=== PATIENT | female | born 1990 | race African-American/Black ===

== ENCOUNTER → 2023-02-11 12:58 | Outpatient (BNVA) | payer OTHER, SELFPAY | PROVIDERS: PCP Internal Medicine; Visit Provider Physician Assistant ==

== ENCOUNTER 2023-02-13 08:01 | Outpatient (AMB) | payer OTHER, SELFPAY ==
--- NOTE | 2023-02-13 08:11 | MHC.OFFVISWM ---
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 [facility] BMI 43.3 Allergies No Known Allergies Allergy (Verified 02/13/23 08:12) Medication List - Last Reconciled 02/13/23 by Reginald Mcfarland MD albuterol 90 mcg/actuation mcg inhalation fluticasone propionate 110 mcg/actuation (Flovent HFA) 1 puff inhalation Q12H multivitamin 1 tab PO DAILY HPI TV [facility]ERSITY SPECIALIST SWL BMI 43.3 HPI Details Start time: 8.05am, End time: 8.52am ?I spent 42 minutes speaking with the patient on the phone plus an additional 5 minutes reviewing and updating records for a total of 47 minutes HPI Comments History of Present Illness Details Previous weight loss efforts: Phentermine Wakes up: 6am, Sleeps:10pm Breakfast: 7.30am (croissant with egg and cheese, or boiled egg with avocado) Lunch: 12pm (chicken, pizza, soup) Dinner: 7.30pm (chicken with vegetables Snacks: 11am (pear or bagel), 1.30pm (brownie), 4pm Fruit), 9pm (crackers and peaches) Exercise: none Fluids: Coffee: 3/week 1/day (sugar), tea: none, juice: 3/wk, soda: none, ETOH: none PFSH Medical History (Updated 02/13/23 @ 08:18 by Reginald Mcfarland MD) Anxiety Depression Asthma Morbid obesity Surgical History (Updated 02/13/23 @ 07:44 by Geetha Enriquez CMA) Hx of breast reduction, elective Family History (Updated 02/13/23 @ 07:44 by Geetha Enriquez CMA) Mother Breast CA Paternal Aunt Breast CA Social History (Updated 02/13/23 @ 07:45 by Geetha Enriquez CMA) Household Members: Children Alcohol intake: current Alcohol intake frequency: holidays/special occasions only Patient Tobacco Use Status: Never used Tobacco service: No Current occupational status: employed 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 Plan for lap sleeve gastrectomy. If diaphragmatic or ventral hernias are present at time of surgery, these will be repaired laparoscopically as well. Risks and complications were discussed in detail including possible conversion to an open procedure, anastomotic leak, bleeding requiring transfusion, small bowel obstruction, , DVT and pulmonary embolism, cardiac, or pulmonary complications, as associate professor of sociology complications such as anastomotic ulcer, insufficient weight loss and vitamin deficiencies. I emphasized the importance of close follow-up, adherence to instructions and good communication. 2. Nutritional counseling. Start with 2 Isopure INFUSION protein (buy at [employer], [employer], [employer], [employer]) shakes (HALF scoop EACH in 8oz low fat unsweetened almond milk each) at 7am-9am and 10am-12pm, 2 protein bars (Zone Perfect protein bars, buy at [employer], ?[employer], [employer], or [employer]) at 1pm-3pm and 4pm-6pm, dinner at 7pm (8 forks of protein and 8 forks of salad/vegetables). So you do 2 protein shakes, 2 protein bars and one meal per day. Meal to include lean meat (beef, fish, pork, turkey, chicken), or cymro yogurt, or egg whites, or beans with a salad with olive oil and fruits (berries, pears, apples, kiwi). Avoid salt, breads, potatoes, rice, pasta, desserts. 3. Each shake would be drunk slowly, like coffee in a period of 2 hours. 4. Cut each bar in 4 pieces and eat each piece in 30min ?to make each bar last 2 hours. 5. I emphasized the importance of measuring accurately the food portion and measure it when serving the food in plate 6. The meal portions include 8 full-size forks of meat and 8 full-size forks of salad. You always eat the meat portion but you can replace up to 4 forks for salad/vegetables with rice, potatoes or pasta, or a fruit ?if you like. The less you do it the better weight loss will be. 7. One full-size fork is what it can be scooped on the fork without falling aside and not what can be bit with the fork. Use regular forks like those you find in a typical restaurant. 8.? Please send me weight measurements as soon as possible and then once a week. Always include your diet and exercise plan. 9. Start treadmill with an incline of 2.0 and speed of 3.0. Increase incline by 1 every 3 min to a max incline of 8.0, stay 3min at 8.0 and then return to 2.0 and repeat same steps until calorie goal is met. Goal is to burn 2000 calories per week on exercise, which means either 300 calories daily, or 400 calories 5 days per week, or 500 calories 4 days per week, or 650 calories 3 days per week. 10. The best choice would be to purchase a stationary bike, elliptical or treadmill at home that can track calories. Let me know if you do so I can give you an exercise plan. 11.?It is important of avoiding and for at least 18 months postoperatively and has been discussed at the infosession. 12. Goal is to lose at least 1.5-2lbs per week 13. Goal to lose 10% of your weight before surgery, which is about 21lbs. Ultimate weight goal: 193lbs before surgery 14. Please follow the diet plan exactly without any change. If you don't like something about the plan or you feel hungry you need to communicate with me so I can help you revise the plan. You should not change the plan yourself. Orders: Orders Hemoglobin A1c Today E66.01 - Morbid (severe) obesity due to excess calories, J45.909 - Unspecified asthma, uncomplicated Complete Blood Count Auto Diff Today E66.01 - Morbid (severe) obesity due to excess calories, J45.909 - Unspecified asthma, uncomplicated Lipid Panel Today E66.01 - Morbid (severe) obesity due to excess calories, J45.909 - Unspecified asthma, uncomplicated Zinc Today E66.01 - Morbid (severe) obesity due to excess calories, J45.909 - Unspecified asthma, uncomplicated C Reactive Protein Today E66.01 - Morbid (severe) obesity due to excess calories, J45.909 - Unspecified asthma, uncomplicated Vitamin A Today E66.01 - Morbid (severe) obesity due to excess calories, J45.909 - Unspecified asthma, uncomplicated Vitamin D 25-OH Total Today E66.01 - Morbid (severe) obesity due to excess calories, J45.909 - Unspecified asthma, uncomplicated US abdomen comp w elastography Today E66.01 - Morbid (severe) obesity due to excess calories, J45.909 - Unspecified asthma, uncomplicated XR chest 2V Today E66.01 - Morbid (severe) obesity due to excess calories, J45.909 - Unspecified asthma, uncomplicated ECG 12 lead EKG Today E66.01 - Morbid (severe) obesity due to excess calories, J45.909 - Unspecified asthma, uncomplicated FL upper GI w air Today E66.01 - Morbid (severe) obesity due to excess calories, J45.909 - Unspecified asthma, uncomplicated Insulin Today E66.01 - Morbid (severe) obesity due to excess calories, J45.909 - Unspecified asthma, uncomplicated H Pylori Breath Test Today E66.01 - Morbid (severe) obesity due to excess calories, J45.909 - Unspecified asthma, uncomplicated IRON PROFILE Today E66.01 - Morbid (severe) obesity due to excess calories, J45.909 - Unspecified asthma, uncomplicated Comprehensive Met. Panel Today E66.01 - Morbid (severe) obesity due to excess calories, J45.909 - Unspecified asthma, uncomplicated Vitamin B12 and Folate Today E66.01 - Morbid (severe) obesity due to excess calories, J45.909 - Unspecified asthma, uncomplicated Vitamin B1 Today E66.01 - Morbid (severe) obesity due to excess calories, J45.909 - Unspecified asthma, uncomplicated TSH reflex Free T4 Today E66.01 - Morbid (severe) obesity due to excess calories, J45.909 - Unspecified asthma, uncomplicated Ferritin Today E66.01 - Morbid (severe) obesity due to excess calories, J45.909 - Unspecified asthma, uncomplicated Referrals Behavioral Health Referral E66.01 - Morbid (severe) obesity due to excess calories, J45.909 - Unspecified asthma, uncomplicated Nutrition/Dietitian Referral E66.01 - Morbid (severe) obesity due to excess calories, J45.909 - Unspecified asthma, uncomplicated Telehealth Telehealth Location of provider rendering services: practice address Location of patient: address on file Patient Identification confirmed using: Name, : Yes Telehealth method: voice only Patient verbally consented to treatment: Yes Patient verbally consented to billing insurance company: Yes Patient informed of any privacy concerns related to visit: Yes Minutes spent on Phone/Video with Pt.: 47 Coding Level of Care Code Tele New Pt Level 4 (09443) Diagnoses Morbid obesity E66.01 Time Spent (min) 47
[2023-02-13 08:26] VITALS: BMI 43.2
== END 2023-02-13 08:53 | disposition home or self-care (01) ==
LOC: HO.HBS 08:01
PROVIDERS: PCP Internal Medicine; Visit Provider Surgery
DX: E66.01 Morbid (severe) obesity due to excess calories (principal); Z68.41 Body mass index [BMI] 40.0-44.9, adult
CPT/HCPCS: 99204

== ENCOUNTER → 2023-02-13 08:01 | Outpatient (BNVA) | payer OTHER, SELFPAY | PROVIDERS: PCP Internal Medicine; Visit Provider Surgery ==

== ENCOUNTER 2023-02-23 11:28 | Outpatient (REF) | payer OTHER, SELFPAY ==
[2023-02-23 11:49] LABS: MANUAL DIFF FLAG NO
--- NOTE | 2023-02-23 12:01 | ECG_ITS ---
Test Reason : e66.01 Blood Pressure : / mmHG Vent. Rate : 052 BPM Atrial Rate : 052 BPM P-R Int : 150 ms QRS Dur : 082 ms QT Int : 410 ms P-R-T Axes : 069 075 044 degrees QTc Int : 381 ms Sinus bradycardia with sinus arrhythmia Otherwise normal ECG No previous ECGs available Referred By: Reginald Mcfarland Electronically Signed By:GONZALES TAYLOR MD
[2023-02-23 12:13] LABS: Basophils Percent Auto 0.4 % (0-2); Eosinophils Absolute Auto 0.1 X10*3/uL (0.0-0.4); Eosinophils Percent Auto 1.4 % (0-4); Hematocrit 43.8 % (37.0-47.0); Hemoglobin 14.4 g/dl (12.0-16.0); Imm Gran Abs Auto 0.01 X10*3/uL (0.00-0.03); Imm Gran Pct Auto 0.2 % (0.0-0.4); Lymphocytes Absolute Auto 2.8 X10*3/uL (1.2-4.9); Lymphocytes Percent Auto 49.8 % (20-40); Mean Corpuscular HGB Conc 32.9 g/dl (31.0-35.0); Mean Corpuscular Hemoglobin 29.6 pg (27.0-33.0); Mean Corpuscular Volume 89.9 fL (80.0-98.0); Mean Platelet Volume 10.8 fL (9.4-12.3); Monocytes Absolute Auto 0.4 X10*3/uL (0.1-1.2); Monocytes Percent Auto 6.3 % (2-11); Neutrophils Absolute Auto 2.4 x10*3/uL (2.0-8.3); Neutrophils Percent Auto 41.9 % (45-73); Platelet Count 261 X10*3/uL (160-400); Red Blood Count 4.87 X10*6/uL (4.20-5.50); Red Cell Distribution Width 11.9 % (11.0-16.0); White Blood Count 5.6 X10*3/uL (4.8-10.8)
[2023-02-23 12:24] LABS: Estimated Average Glucose 97 mg/dL
[2023-02-23 12:50] LABS: Alanine Aminotransferase 12 U/L (0-31); Albumin Level 4.2 g/dL (3.5-5.0); Alkaline Phosphatase 75 U/L (39-117); Anion Gap 11 (12-20); Aspartate Amino Transferase 17 U/L (5-31); Bilirubin Total 0.6 mg/dL (0.0-1.0); Blood Urea Nitrogen 9 mg/dL (9-16); C Reactive Protein 1.21 mg/dL (< or = 0.50); Calcium 9.4 mg/dL (8.4-10.2); Carbon Dioxide 26 mmol/L (22-29); Chloride 105 mmol/L (96-108); Cholesterol 167 mg/dL (<200); Estimated Glomerular Filt Rate > 60; Glucose Random 81 mg/dL (60-115); HDL Cholesterol 36 mg/dL (>40); Iron 75 mcg/dL (30-160); LDL Cholesterol Calculated 119 mg/dL (<100); Percent Iron Saturation 24 % (15-50); Sodium 138 mmol/L (135-145); Total Iron Binding Capacity 308 mcg/dL (228-428); Total Protein 8.4 g/dL (6.5-8.0); Triglycerides 61 mg/dL (<150); Unsaturated Iron Binding 233 ug/dL
[2023-02-23 13:07] LABS: Ferritin 45 ng/mL (10-122); Insulin 12 uU/mL (2-29); TSH reflex Free T4 1.24 uIU/mL (0.32-4.0); Vitamin D 25-OH Total 22.8 ng/mL (>30)
[2023-02-23 13:13] LABS: Folate 10.9 ng/mL (> or = 4.0); Vitamin B12 1009 pg/mL (200-900)
[2023-02-25 13:48] LABS: Zinc 69 mcg/dL (60-130)
[2023-02-27 03:53] LABS: Vitamin A 35 mcg/dL (38-98)
[2023-03-01 04:53] LABS: Vitamin B1 6 nmol/L (8-30)
== END 2023-02-23 11:29 | disposition home or self-care (01) ==
LOC: HO.LAB 11:28
PROVIDERS: PCP Internal Medicine; Visit Provider Surgery
DX: E66.01 Morbid (severe) obesity due to excess calories (principal); J45.909 Unspecified asthma, uncomplicated
CPT/HCPCS: 36415; 71046; 80053; 80061; 82306; 82607; 82728; 82746; 83036; 83525; 83540; 84425; 84443; 84590; 84630; 85025; 86140; 93005

== ENCOUNTER → 2023-02-23 12:01 | Outpatient (BNV) | payer OTHER, SELFPAY | PROVIDERS: PCP Internal Medicine; Visit Provider Internal Medicine Cardiovascular Disease | DX: I49.9 Cardiac arrhythmia, unspecified (principal) | CPT/HCPCS: 93010 ==

== ENCOUNTER 2023-03-04 09:46 | Outpatient (AMB) | payer OTHER, SELFPAY ==
--- NOTE | 2023-03-04 12:02 | A.OFFVIS_ITS ---
Intake VS Expanded 03/04/23 12:03 Height 4 ft 11 in Weight 208 lb 6 oz BMI 42.1 Body Fat % 54 Body Fat Mass 112.6 Fat Free Mass 95.9 Visceral Fat Rating 23 Body Water % 31.6 Body Water Mass 65.9 Basal Metabolic Rate/Score 1,309 Intake Visit Reasons: TV Follow Up SWL - 1ST Allergies No Known Allergies Allergy (Verified 02/13/23 08:12) HPI TV Follow Up SWL - 1ST HPI Details Start time: 11.50am, End time: 12.10pm ?I spent 15 minutes speaking with the patient on the phone plus an additional 5 minutes reviewing and updating records for a total of 20 minutes HPI Comments History of Present Illness Details Overall weight loss: 5.6lbs, or 2.61% TBWL Was away for a family the entire last week PFSH Medical History (Updated 03/04/23 @ 11:51 by Reginald Mcfarland MD) Anxiety Depression Asthma Morbid obesity Surgical History (Updated 02/13/23 @ 07:44 by Geetha Enriquez CMA) Hx of breast reduction, elective Family History (Updated 02/13/23 @ 07:44 by Geetha Enriquez CMA) Mother Breast CA Paternal Aunt Breast CA Social History (Updated 02/13/23 @ 07:45 by Geetha Enriquez CMA) Household Members: Children Alcohol intake: current Alcohol intake frequency: holidays/special occasions only Patient Tobacco Use Status: Never used Tobacco service: No Current occupational status: employed 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 Nutritional counseling. Start with 2 Isopure INFUSION protein shakes (HALF scoop EACH in 8oz water) at 7am-9am and 10am-12pm, 2 protein bars ([employer] Perfect protein bars, buy at [employer], ?[employer], [employer], or [employer]) at 1pm-3pm and 4pm-6pm, dinner at 7pm (8 forks of protein and 8 forks of salad/vegetables). So you do 2 protein shakes, 2 protein bars and one meal per day. 2.? Please send me weight measurements tomorrow and then weekly on 3. Start treadmill with an incline of 2.0 and speed of 3.0. Increase incline by 1 every 3 min to a max incline of 8.0, stay 3min at 8.0 and then return to 2.0 and repeat same steps until calorie goal is met. Goal is to burn 2000 calories per week on exercise, which means either 300 calories daily, or 400 calories 5 days per week, or 500 calories 4 days per week, or 650 calories 3 days per week. Medications: New thiamine HCl (vitamin B1) 100 mg PO DAILY 90 tabs 0RF E51.9 - Thiamine deficiency, unspecified Telehealth Telehealth Location of provider rendering services: practice address Location of patient: address on file Patient Identification confirmed using: Name, : Yes Telehealth method: voice only Patient verbally consented to treatment: Yes Patient verbally consented to billing insurance company: Yes Patient informed of any privacy concerns related to visit: Yes Minutes spent on Phone/Video with Pt.: 20 Coding Level of Care Code Tele Est Pt Level 3 (13195) Diagnoses Morbid obesity E66.01 Time Spent (min) 20
[2023-03-04 12:03] VITALS: BMI 42.1
== END 2023-03-04 12:11 | disposition home or self-care (01) ==
LOC: HO.HBS 09:46
PROVIDERS: PCP Internal Medicine; Visit Provider Surgery
DX: E66.01 Morbid (severe) obesity due to excess calories (principal); Z68.43 Body mass index [BMI] 50.0-59.9, adult
CPT/HCPCS: 99213

== ENCOUNTER → 2023-03-04 09:46 | Outpatient (BNVA) | payer OTHER, SELFPAY | PROVIDERS: PCP Internal Medicine; Visit Provider Surgery ==

== ENCOUNTER 2023-03-13 15:08 | Outpatient (REF) | payer OTHER, SELFPAY ==
[2023-03-20 09:55] LABS: H Pylori Breath Test Positive (Negative)
== END 2023-03-13 15:09 | disposition home or self-care (01) ==
LOC: HO.LNP 15:08
PROVIDERS: Visit Provider Surgery
DX: E66.01 Morbid (severe) obesity due to excess calories (principal); J45.909 Unspecified asthma, uncomplicated
CPT/HCPCS: 83013

== ENCOUNTER → 2023-03-13 15:08 | Outpatient (BNVA) | payer OTHER, SELFPAY | PROVIDERS: PCP Internal Medicine; Visit Provider Physician Assistant Surgical | DX: Z11.0 Encounter for screening for intestinal infectious diseases (principal) | CPT/HCPCS: 99211 ==

== ENCOUNTER 2023-03-17 15:07 | Outpatient (AMB) | payer SELFPAY ==
--- NOTE | 2023-03-17 14:03 | A.OFFWM_ITS ---
Intake Intake Visit Reasons: VIDEO BH Intake Allergies No Known Allergies Allergy (Verified 02/13/23 08:12) [facility] Medical History (Updated 03/28/23 @ 14:10 by Reginald Mcfarland MD) Anxiety Depression Asthma Morbid obesity Surgical History (Updated 02/13/23 @ 07:44 by Geetha Enriquez CMA) Hx of breast reduction, elective Family History (Updated 02/13/23 @ 07:44 by Geetha Enriquez CMA) Mother Breast CA Paternal Aunt Breast CA Social History (Updated 02/13/23 @ 07:45 by Geetha Enriquez CMA) Household Members: Children Alcohol intake: current Alcohol intake frequency: holidays/special occasions only Patient Tobacco Use Status: Never used Tobacco service: No Current occupational status: employed 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 Pt stated that she has been in therapy for 15 years now and is seeing Starr Isabel who is in private practice. She reported that she was diagnosed with anxiety and depression. Pt reported that she relocated here from [place] as a single mother who was homeless. She now works two jobs and attends school. She has no history of drug or alcohol problems. She reported one previous inpatient admission when she was 15 years old. Also recently lost her grandmother. Presenting Concerns Referral Source provider Reason for referral weight loss surgery evaluation Precipitating Event obesity Living Situation Current Living Situation Rent At risk of losing current housing? No Satisfied with current living situation? Yes Comments Pt lives with her two children ages 9, and 4 years old. Food/Weight/Diet Expectations of change weight loss and maintenance History/Relationship with food Pt stated that food was often a source of comfort, she would have pizza, cereal, fruit cups, soups, pasta, she denied excessive or binge eating, Some reports today did not coincide with questionnaires initially filled out. History/Relationship with weight Pt stated that she started to gain weight after she had her son and struggled to loose weight. History/Relationship with dieting Phentermine recently at another program however had to stop due to that program not taking her insurance, 230-170lbs, gained some of the weight back. Binge Eating Do you frequently eat large amounts of food in short periods of time, not feeling physically hungry? No Do you feel out of control when you eat a large amount of food in a short period of time? No Do you eat large amounts of food rapidly and typically alone? Yes Night Eating Do you wake up at least once during the night to eat? No If you wake up in the night, do you find that it is necessary to eat something in order to fall back asleep? No Do you have little or no appetite in the morning and feel very hungry in the evening, often overeating between dinner and when you go to bed? Yes Social History Family history and relationship Pt stated that her family lives in [place]. She lives here with her two children and their father co parents with her. She reported toxic family relationships was one of the reasons she left [place]. Parental/Familial ticket writer obligations children Developmental history and status none known Social support some family support, ex , co workers Legal Involvement and History Current or historical involvement with the legal system? none Education Highest grade completed currently attending online college classes Preferred learning style Auditory, Verbal, Written, Learn by doing and Visual Currently enrolled in educational program? Yes Interested in further educational program? Yes Educational Interests/Skills Pt works two jobs and is going to school while raising her children. 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 No Meaningful activities gym, [employer], [employer] Financial Situation Describe current financial situation Occasional struggle Financial assistance? None Service Service? No Mental Health and Addiction Treatment Current/Past substance abuse? No Current/Past addictive behavior concerns? No Medical and Physical Health Summary Physical exam in the last year? Yes Pain Screening Current pain? No Pain in the last few months? No Medications Is the patient compliant with medications? Yes Does the patient have Chang Guardian in place? Not applicable Does the patient use complimentary health approaches? No Trauma/Abuse History History of trauma? Yes Questionnaires PHQ-9 Over the last 2 weeks, how often have you been bothered by any of the following problems? 1. Little interest or pleasure in doing things: several days 2. Feeling down, depressed, or hopeless: more than half the days 3. Trouble falling or staying asleep, or sleeping too much: not at all 4. Feeling tired or having little energy: nearly every day 5. Poor appetite or overeating: nearly every day 6. Feeling bad about yourself - or that you are a failure or have let yourself or your family down: not at all 7. Trouble concentrating on things, such as reading the newspaper or watching television: more than half the days 8. Moving or speaking so slowly that other people could have noticed. Or the opposite - being so fidgety or restless that you have been moving around a lot more than usual: not at all 9. Thoughts that you would be better off or of hurting yourself in some way: not at all Total score: 11 Source: Developed by Drs. Jigar Lechuga, Juanita Enrique, Ad Herrera and colleagues, with an educational oscar from [employer]. Binge Eating Scale Group 1 A. I don't feel self-conscious about my wt. or body size when I'm with others. B. I feel concerned about how I look to others, but it normally does not make me fell disappointed with myself C. I do get self-conscious about my appearance and wt. which makes me feel disappointed in myself. D. I feel very self-conscious about my wt. and frequently I feel intense shame and disgust for myself. I try to avoid social contacts because of my self- consciousness. Response Group 1: C Group 2 A. I don't have any difficulty eating slowly in the proper manner. B. Although I seem to gobble down foods, I don't end up feeling stuffed because of eating to much. C. At times, I tend to eat quickly and then, I feel uncomfortably full afterwards. D. I have the habit of bolting down my food, without really chewing it. When this happens I usually feel uncomfortably stuffed because I've eaten to much. Response Group 2: C Group 3 A. I feel capable to control my eating urges when I want to. B. I feel like I have failed to control my eating more than the average person. C. I feel utterly helpless when it comes to feeling in control of my eating urges. D. Because I feel so helpless about controlling my eating I have become very desperate about trying to get control. Response Group 3: B Group 4 A. I don't have the habit of eating when I'm bored. B. I sometimes eat when I'm bored, but often I'm able to get busy and get my mind off food. C. I have a regular habit of eating when I'm bored, but occasionally, I can use some other activity to get my mind off eating. D. I have a strong habit of eating when I'm bored. Nothing seems to help me breath the habit. Response Group 4: D Group 5 A. I'm usually physically hungry when I eat something. B. Occasionally, I eat something on impulse even though I really am not hungry. C. I have the regular habit of eating foods, that I might not really enjoy, to satisfy a hungry feeling even though physically, I don't need the food. D. Although I'm not physically hungry, I get a hungry feeling in my mouth that only seems to be satisfied when I eat a food, like sandwich, that fills my mouth. Sometimes, when I eat the food to satisfy my mouth hunger, I then spit the food out so I won't gain weight. Response Group 5: B Group 6 A. I don't feel any guilt or self-hate after I overeat. B. After I overeat, occasionally I feel guilt or self-hate. C. Almost all the time I experience strong guilt or self-hate after I overeat. Response Group 6: B Group 7 A. I don't lose total control of my eating when dieting even after periods when I overeat. B. Sometimes when I eat a forbidden food on a diet, I feel like I blew it and eat even more. C. Frequently, I have the habit of saying to myself, I've blown it now, why not go all the way, when I overeat on a diet. When that happens I eat more. D. I have a regular habit of starting a strict diets for myself but I break the diets by going on an eating binge. My life seems to be either a feast or famine. Response Group 7: B Group 8 A. I rarely eat so much food that I feel uncomfortably stuffed afterwards. B. Usually about once a month, I each such a quantity of food, I end up feeling very stuffed. C. I have regular periods during the month when I eat large amounts of food, either at mealtime or at snacks. D. I eat so much food that I regularly feel quite uncomfortable after eating and sometimes a bit nauseous. Response Group 8: B Group 9 A. My level of calorie intake does not go up very high or go down very low on a regular basis. B. Sometimes after I overeat, I will try to reduce my caloric intake to almost nothing to compensate for the excess calories I've eaten. C. I have a regular habit of overeating during the night. It seems that my routine is not to be hungry in the morning but overeat in the evening. D. In my adult years, I have had week-long periods where I practically starve my self. This follows periods when I overeat. It seems I live a life of either feast or famine. Response Group 9: C Group 10 A. I usually am able to stop eating when I want to. I know when enough is enough. B. Every so often, I experience a compulsion to eat which I can't seem to control. C. Frequently, I experience strong urges to eat which I seem unable to control, but at other times I can control my eating urges. D. I feel incapable of controlling urges to eat. I have a fear of not being able to stop eating voluntarily. Response Group 10: B Group 11 A. I don't have any problem stopping eating when I feel full. B. I usually can stop eating when I feel full but occasionally overeat leaving me feeling uncomfortably stuffed. C. I have a problem stopping eating once I start and usually I feel uncomfortably stuffed after I eat a meal. D. Because I have a problem not being able to stop eating when I want, I sometimes have to induce vomiting to relieve my stuffed feeling. Response Group 11: B Group 12 A. I seem to eat just as much when I'm with others, Family social gatherings as when I'm by myself. B. Sometimes, when I'm with other persons, I don't eat as much as I want to eat because I'm self-conscious about my eating. C. Frequently, I eat only a small amount of food when others are present, because I'm very embarrassed about my eating. D. I feel so ashamed about overeating that I pick times to overeat when I know no one will see me. I feel like a closet eater. Response Group 12: A Group 13 A. I eat three meals a day with only an occasional between meal snack. B. I eat 3 meals a day, but I also normally snack between meals. C. When I am snacking heavily, I get in the habit of skipping regular meals. D. There are regular periods when I seem to be continually eating, with no planned meals. Response Group 13: D Group 14 A. I don't think much about trying to control unwanted eating urges. B. At least some of the time, I feel my thoughts are pre-occupied with trying to control my eating urges. C. I feel that frequently I spend much time thinking about how much I ate or about trying not to eat anymore. D. It seems to me that most of my waking hours are pre-occupied by thoughts about eating or not eating. I feel like I'm constantly struggling not to eat. Response Group 14: A Group 15 A. I don't think about food a great deal. B. I have strong craving for food but they last only for brief periods of time. C. I have days when I can't seem to think about anything else but food. D. Most of my days seem to be pre-occupied with thoughts about food. I feel like I live to eat. Response Group 15: B Group 16 A. I usually know whether or not I'm physically hungry. I take the right portion of food to satisfy me. B. Occasionally, I feel uncertain about knowing whether or not I'm physically hungry. A these times it's hard to know how much food I should take to satisfy me. C. Even though I might know how many calories I should eat, I don't have any idea what is a normal amount of food for me. Response Group 16: B Binge Eating Score: 21 Score less than 17 Minimal Risk Score between 18-26 Moderate Risk Score between 27-46 High Risk Assessment & Plan Assessment & Plan (1) Depression: Code(s): F32.A - Depression, unspecified Plan Patient is in therapy, reports no serious issues at this time. She is cleared for surgery when ready and follow up as needed. Telehealth Telehealth Location of provider rendering services: other Location of patient: other Patient Identification confirmed using: Name, : Yes Telehealth method: voice only Patient verbally consented to treatment: Yes Patient verbally consented to billing insurance company: Yes Patient informed of any privacy concerns related to visit: Yes Minutes spent on Phone/Video with Pt.: 45 Coding Level of Care Code Tele Psy Diag Bhavanial (77836) Diagnoses Depression F32.A Time Spent (min) 45
== END 2023-03-17 15:15 ==
LOC: HO.HBST 15:07
PROVIDERS: PCP Internal Medicine; Visit Provider Counselor Mental Health
DX: F32.A Depression, unspecified (principal)
CPT/HCPCS: 90791

== ENCOUNTER → 2023-03-17 15:07 | Outpatient (BNVA) | payer OTHER, SELFPAY | PROVIDERS: PCP Internal Medicine; Visit Provider Counselor Mental Health ==

== ENCOUNTER 2023-03-18 14:36 | Outpatient (AMB) | payer OTHER, SELFPAY ==
--- NOTE | 2023-03-18 14:20 | A.OFFVIS_ITS ---
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 she has used this approach in the past and it did not work for her. she has told this to Dr. Mcfarland. I encouraged she discuss this again She is grieving the loss of a very close loved one. she has a therapist and saw arabella yesterday. she is experiencing a lot of emotional eating. This iis a very difficult time to change her eating habits but she is still working on it after her second child, she started craving more carbs . she completed online classes and these were reviewed today Previous weight loss methods attempted Phentermine for 2.5 years Dietary counseling reduction Diagnosis Nutrition problem #1 overweight/obesity As related to (etiology) #1 excess energy intake and physical inactivity As evidenced by (sign/symptom) #1 high BMI Monitoring/Goals Nutrition problem monitoring total energy intake, level of knowledge/skill, total PRO intake, total CHO intake and weight Learning/Education Readiness to learn excellent Stages of change action Most Recent Diabetes Results: Cholesterol 167 mg/dL (<200) 02/23/23 HDL Cholesterol 36 mg/dL (>40) L 02/23/23 Triglycerides 61 mg/dL (<150) 02/23/23 Creatinine 0.83 mg/dL (0.5-1.4) 02/23/23 Blood Urea Nitrogen 9 mg/dL (9-16) 02/23/23 Sodium 138 mmol/L (135-145) 02/23/23 Potassium 4.0 mmol/L (3.3-5.1) 02/23/23 Chloride 105 mmol/L (96-108) 02/23/23 Carbon Dioxide 26 mmol/L (22-29) 02/23/23 Calcium 9.4 mg/dL (8.4-10.2) 02/23/23 AST 17 U/L (5-31) 02/23/23 ALT 12 U/L (0-31) 02/23/23 Total Protein 8.4 g/dL (6.5-8.0) H 02/23/23 Albumin 4.2 g/dL (3.5-5.0) 02/23/23 [facility] Medical History (Updated 03/04/23 @ 11:51 by Reginald Mcfarland MD) Anxiety Depression Asthma Morbid obesity Surgical History (Updated 02/13/23 @ 07:44 by Geetha Enriquez CMA) Hx of breast reduction, elective Family History (Updated 02/13/23 @ 07:44 by Geetha Enriquez CMA) Mother Breast CA Paternal Aunt Breast CA Social History (Updated 02/13/23 @ 07:45 by Geetha Enriquez CMA) Household Members: Children Alcohol intake: current Alcohol intake frequency: holidays/special occasions only Patient Tobacco Use Status: Never used Tobacco service: No Current occupational status: employed 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 Assessment & Plan Assessment & Plan (1) Morbid obesity: Code(s): E66.01 - Morbid (severe) obesity due to excess calories Plan pt will be seen again for support Telehealth Telehealth Location of provider rendering services: practice address Location of patient: address on file Patient Identification confirmed using: Name, : Yes Telehealth method: voice only Patient verbally consented to treatment: Yes Patient verbally consented to billing insurance company: Yes Patient informed of any privacy concerns related to visit: Yes Minutes spent on Phone/Video with Pt.: 20 Coding Level of Care Code Nutr Indiv Intake (62299) Diagnoses Morbid obesity E66.01 Time Spent (min) 20
== END 2023-03-18 14:40 | disposition home or self-care (01) ==
LOC: HO.HBS 14:36
PROVIDERS: PCP Internal Medicine; Visit Provider Dietitian, Registered
DX: E66.01 Morbid (severe) obesity due to excess calories (principal)

== ENCOUNTER → 2023-03-18 14:36 | Outpatient (BNVA) | payer OTHER, SELFPAY | PROVIDERS: PCP Internal Medicine; Visit Provider Dietitian, Registered | DX: E66.01 Morbid (severe) obesity due to excess calories (principal) | CPT/HCPCS: 97802 ==

== ENCOUNTER 2023-03-20 08:31 | Outpatient (REF) | payer SELFPAY ==
--- NOTE | ~2023-03-20 | US_ITS ---
EXAMINATION: US COMPLETE ABDOMEN WITH LIVER ELASTOGRAPHY CLINICAL INFORMATION: History of morbid obesity. COMPARISON: None available. TECHNIQUE: Real-time imaging of the abdominal viscera. Noninvasive ultrasound liver fibrosis assessment is performed using Shaila ElastPQ point quantification shear wave elastography (2D-SWE) with a C5-2 MHz transducer. Multiple elastography samples are obtained. FINDINGS: PANCREAS: Normal. The visualized pancreatic head and body are normal in appearance. The remainder of the pancreas is obscured from visualization by the overlying bowel gas. ABDOMINAL AORTA: The proximal, middle, and distal aortic segments are normal in caliber, although some of the distal aorta is partially obscured by bowel gas. INFERIOR VENA CAVA: Visualized portions are normal. LIVER: Liver has normal size and contour. At visualized inspection, the parenchymal echotexture appears to be in normal range. The echogenicity of portal venous med[place] is maintained. No focal lesion or intrahepatic ductal dilatation The right lobe measures approximately 14 cm in length. The left lobe measures 7.9 cm in length. Portal flow is . Shear wave liver elastography median stiffness is 1.84 m/s (reference: normal median stiffness is 1.3 m/s or less). IQR/median stiffness to assess sampling precision is 0.10 (reference: good quality data set is IQR/median stiffness of 0.15 or less). GALLBLADDER: The gallbladder is physiologically distended without evidence of stones, sludge, wall thickening or pericholecystic fluid. There is a 0.2 cm gallbladder polyp. COMMON BILE DUCT: Normal in caliber measuring 0.5 cm in diameter. RIGHT KIDNEY: Normal. No hydronephrosis. No renal calculi or focal parenchymal lesions. The kidney measures 10.7 cm in maximum dimension. LEFT KIDNEY: Normal. No hydronephrosis. No renal calculi or focal parenchymal lesions. The kidney measures 10.7 cm in maximum dimension. SPLEEN: Normal. The spleen measures 8.5 cm in maximum dimension. FREE FLUID: None. US/US abdomen comp w elastography IMPRESSION: The liver elastography is abnormal. Shear wave liver elastography median stiffness is 1.84 m/s (reference: normal median stiffness is 1.3 m/s or less). Findings suggestive of compensated advanced chronic liver disease but need further test for confirmation. There is a small gallbladder polyp. REFERENCE: Society of Radiologists in Ultrasound Liver Stiffness Thresholds (2020): LIVER STIFFNESS THRESHOLDS: *Liver Stiffness equal or less than 1.3 m/s: High probability of being normal. *Liver Stiffness less than 1.7 m/s: In the absence of other known clinical signs, rules out compensated advanced chronic liver disease. *Liver Stiffness 1.7-2.1 m/s: Suggestive of compensated advanced chronic liver disease but need further test for confirmation. *Liver Stiffness over 2.1 m/s: Rules in compensated advanced chronic liver disease. *Liver Stiffness over 2.4 m/s: Suggestive of clinically significant portal hypertension. QUALITY OF DATA SET: *IQR/Median value equal or less than 0.15 implies a quality data set. *IQR/Median value over 0.15 implies a poor quality data set. OTHER CONSIDERATIONS: The stage of liver fibrosis may be overestimated in the setting of acute hepatitis, liver inflammation, elevated liver function tests, hepatic vascular congestion, obstructive cholestasis, non-fasting state, and infiltrative diseases such as amyloidosis and lymphoma. In some patients with NAFLD, the liver stiffness thresholds for compensated advanced chronic liver disease may be lower. In causes other than viral hepatitis and NAFLD, liver stiffness thresholds are not well established.
== END 2023-03-20 08:32 | disposition home or self-care (01) ==
LOC: HO.US 08:31
PROVIDERS: PCP Internal Medicine; Visit Provider Surgery
DX: E66.01 Morbid (severe) obesity due to excess calories (principal); J45.909 Unspecified asthma, uncomplicated
CPT/HCPCS: 76705; 76981

== ENCOUNTER 2023-03-27 08:09 | Outpatient (AMB) | payer OTHER, SELFPAY ==
[2023-03-27 12:40] VITALS: BMI 43.0
--- NOTE | 2023-03-27 12:40 | MHC.OFFVISWM ---
Intake VS Expanded 03/27/23 12:40 Height 4 ft 11 in Weight 213 lb BMI 43.0 Body Fat % 55.4 Body Fat Mass 118 Fat Free Mass 94.9 Visceral Fat Rating 24 Body Water % 30.6 Body Water Mass 65.1 Basal Metabolic Rate/Score 1,299 Intake Visit Reasons: TV Follow Up SWL Allergies No Known Allergies Allergy (Verified 02/13/23 08:12) HPI TV Follow Up SWL HPI Details Start time: 12.21pm, End time: 12.51pm ?I spent 25 minutes speaking with the patient on the phone plus an additional 5 minutes reviewing and updating records for a total of 30 minutes HPI Comments History of Present Illness Details Overall weight loss: 0.8lbs Is doing 2 Isopure protein shakes (1/2 scoop each in water), 2 Zone Perfect protein bars and one meal (8 forks of protein and 8 forks of salad or vegetables). At times at the hospital she may eat wrong food choices due to not having prepared a proper meal Exercise: walking at work [facility] Medical History (Updated 03/04/23 @ 11:51 by Reginald Mcfarland MD) Anxiety Depression Asthma Morbid obesity Surgical History (Updated 02/13/23 @ 07:44 by Geetha Enriquez CMA) Hx of breast reduction, elective Family History (Updated 02/13/23 @ 07:44 by Geetha Enriquez CMA) Mother Breast CA Paternal Aunt Breast CA Social History (Updated 02/13/23 @ 07:45 by Geetha Enriquez CMA) Household Members: Children Alcohol intake: current Alcohol intake frequency: holidays/special occasions only Patient Tobacco Use Status: Never used Tobacco service: No Current occupational status: employed 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 Continue same nutritional plan of 2 Isopure protein shakes (1/2 scoop each in water), 2 Zone Perfect protein bars and one meal (8 forks of protein and 8 forks of salad or vegetables). 2. When you have not prepared a proper meal, please replace the meal with an additional 2 Zone Perfect protein bars for a total of 4 bars those days 3. It would be best to exercise on the treadmill for 300 calories per day, daily 4. Continue to send me weight measurements weekly on Telehealth Telehealth Location of provider rendering services: practice address Location of patient: address on file Patient Identification confirmed using: Name, : Yes Telehealth method: voice only Patient verbally consented to treatment: Yes Patient verbally consented to billing insurance company: Yes Patient informed of any privacy concerns related to visit: Yes Minutes spent on Phone/Video with Pt.: 30 Coding Level of Care Code Tele Est Pt Level 4 (96924) Diagnoses Morbid obesity E66.01 Time Spent (min) 30
== END 2023-03-27 12:52 | disposition home or self-care (01) ==
LOC: HO.HBS 08:09
PROVIDERS: PCP Internal Medicine; Visit Provider Surgery
DX: E66.01 Morbid (severe) obesity due to excess calories (principal); Z68.41 Body mass index [BMI] 40.0-44.9, adult
CPT/HCPCS: 99214

== ENCOUNTER → 2023-03-27 08:09 | Outpatient (BNVA) | payer OTHER, SELFPAY | PROVIDERS: PCP Internal Medicine; Visit Provider Surgery | DX: E51.9 Thiamine deficiency, unspecified (principal); E66.01 Morbid (severe) obesity due to excess calories ==

== ENCOUNTER 2023-04-17 07:55 | Outpatient (AMB) | payer SELFPAY ==
--- NOTE | 2023-04-17 12:04 | MHC.OFFVISWM ---
Intake VS Expanded 04/17/23 12:15 Height 4 ft 11 in Weight 212 lb BMI 42.8 Body Fat % 55.3 Body Fat Mass 117.2 Fat Free Mass 94.7 Visceral Fat Rating 24 Body Water % 30.7 Body Water Mass 65 Basal Metabolic Rate/Score 1,299 Intake Visit Reasons: TV Follow Up SWL Allergies No Known Allergies Allergy (Verified 02/13/23 08:12) HPI TV Follow Up SWL HPI Details Start time: 11.53am, End time: 12.21pm ?I spent 23 minutes speaking with the patient on the phone plus an additional 5 minutes reviewing and updating records for a total of 28 minutes HPI Comments History of Present Illness Details Overall weight loss: 2.2lbs or 1.03% TBWL Is doing 2 Isopure shakes with half scoop each in water and one meal No exercise. 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 Continue same nutritional plan of 2 Isopure protein shakes (1/2 scoop each in water), 2 Zone Perfect protein bars and one meal (8 forks of protein and 8 forks of salad or vegetables). 2. When you have not prepared a proper meal, please replace the meal with an additional 2 Zone Perfect protein bars for a total of 4 bars those days 3. It would be best to exercise on the treadmill for 300 calories per day, daily 4. Continue to send me weight measurements weekly on Telehealth Telehealth Location of provider rendering services: practice address Location of patient: address on file Patient Identification confirmed using: Name, : Yes Telehealth method: voice only Patient verbally consented to treatment: Yes Patient verbally consented to billing insurance company: Yes Patient informed of any privacy concerns related to visit: Yes Minutes spent on Phone/Video with Pt.: 28 Coding Level of Care Code Tele Est Pt Level 3 (74713) Diagnoses Morbid obesity E66.01 Time Spent (min) 28
[2023-04-17 12:15] VITALS: BMI 42.8
== END 2023-04-17 12:22 | disposition home or self-care (01) ==
LOC: HO.HBS 07:55
PROVIDERS: PCP Internal Medicine; Visit Provider Surgery
DX: E66.01 Morbid (severe) obesity due to excess calories (principal); Z68.41 Body mass index [BMI] 40.0-44.9, adult
CPT/HCPCS: 99213

== ENCOUNTER → 2023-04-17 07:55 | Outpatient (BNVA) | payer OTHER, SELFPAY | PROVIDERS: PCP Internal Medicine; Visit Provider Surgery ==

== ENCOUNTER 2023-04-22 14:21 | Outpatient (AMB) | payer OTHER, SELFPAY ==
--- NOTE | 2023-04-22 14:16 | A.OFFVIS_ITS ---
Intake Intake Visit Reasons: VIDEO F/U SWL Privacy Manager Required: No Allergies No Known Allergies Allergy (Verified 02/13/23 08:12) HPI Nutrition Presentation Reason for consult elevated BMI Diet Assmnt Details reports she is struggling with surgeons nutrition plan still . Met with surgeon several roberta but but did not find a solution . she completed online classes and these were reviewed last appt Previous weight loss methods attempted Phentermine for 2.5 years Dietary counseling reduction Diagnosis Nutrition problem #1 overweight/obesity As related to (etiology) #1 excess energy intake and physical inactivity As evidenced by (sign/symptom) #1 high BMI Monitoring/Goals Nutrition problem monitoring total energy intake, level of knowledge/skill, total PRO intake, total CHO intake and weight Learning/Education Readiness to learn good Stages of change action Most Recent Diabetes Results: No Data to Display [facility] Medical History (Updated 03/28/23 @ 14:10 by Reginald Mcfarland MD) Anxiety Depression Asthma Morbid obesity Surgical History (Updated 02/13/23 @ 07:44 by Geetha Enriquez CMA) Hx of breast reduction, elective Family History (Updated 02/13/23 @ 07:44 by Geetha Enriquez CMA) Mother Breast CA Paternal Aunt Breast CA Social History (Updated 02/13/23 @ 07:45 by Geetha Enriquez CMA) Household Members: Children Alcohol intake: current Alcohol intake frequency: holidays/special occasions only Patient Tobacco Use Status: Never used Tobacco service: No Current occupational status: employed Current occupation: [employer] Assessment & Plan Assessment & Plan (1) Morbid obesity: Code(s): E66.01 - Morbid (severe) obesity due to excess calories Plan Patient is cleared from a nutrition standpoint for bariatric surgery. Educational requirements have been completed. Reviewed vitamin supplementation and commitment to protein shake for several months post surgery. Encouraged communication with office as needed Telehealth Telehealth Location of provider rendering services: practice address Location of patient: address on file Patient Identification confirmed using: Name, : Yes Telehealth method: voice only Patient verbally consented to treatment: Yes Patient verbally consented to billing insurance company: Yes Patient informed of any privacy concerns related to visit: Yes Minutes spent on Phone/Video with Pt.: 20 Coding Level of Care Code Nutr Indiv Subseq (10163) Diagnoses Morbid obesity E66.01 Time Spent (min) 20
== END 2023-04-22 14:45 | disposition home or self-care (01) ==
LOC: HO.HBS 14:21
PROVIDERS: PCP Internal Medicine; Visit Provider Dietitian, Registered
DX: E66.01 Morbid (severe) obesity due to excess calories (principal)

== ENCOUNTER → 2023-04-22 14:21 | Outpatient (BNVA) | payer SELFPAY | PROVIDERS: PCP Internal Medicine; Visit Provider Dietitian, Registered | DX: E66.01 Morbid (severe) obesity due to excess calories (principal); Z71.3 Dietary counseling and surveillance | CPT/HCPCS: 97803 ==

== ENCOUNTER 2023-05-04 09:00 | Outpatient (REF) | payer SELFPAY ==
--- NOTE | ~2023-05-04 | FL_ITS ---
EXAMINATION: XR FLUOROSCOPY UPPER GI WITH AIR CLINICAL INFORMATION: Preop evaluation prior to bariatric surgery COMPARISON: None TECHNIQUE: Fluoroscopic air contrast upper GI examination was performed utilizing standard techniques with thin and thick barium and effervescent granules. Numerous spot images were obtained. FINDINGS: Dual and single contrast images of the esophagus demonstrate normal caliber, contour, and mucosal pattern. No evidence of stricture, mass, or ulcerations identified. Esophageal peristalsis was normal. No evidence of hiatus hernia identified. No significant gastroesophageal reflux was seen during the course of the examination and on reflux views. Dual contrast and single contrast images of the stomach demonstrated normal contour and mucosal pattern without evidence of mass, ulceration, or other abnormality. Contrast freely passed into the gastric antrum and duodenal bulb without delay. Single and air-contrast images of the duodenal bulb demonstrate no abnormality. The duodenal sweep has a normal appearance, course, and mucosal fold appearance. No malrotation. The imaged proximal jejunum has a normal fold pattern and caliber. FLUOROSCOPY TIME: 3 minutes 2 seconds Number of Spot Images: 5 Number of Cine: 7 DOSE AREA PRODUCT: 2504 uGy-m2 (microgray-meter squared) FL/FL upper GI w air IMPRESSION: 1. Unremarkable upper GI series This procedure was performed by Chung Mendiola PA-C, and supervised by Dr. Martínez
== END 2023-05-04 09:01 | disposition home or self-care (01) ==
LOC: HO.XRAY 09:00
PROVIDERS: PCP Internal Medicine; Visit Provider Surgery
DX: E66.01 Morbid (severe) obesity due to excess calories (principal); J45.909 Unspecified asthma, uncomplicated
CPT/HCPCS: 74246

== ENCOUNTER → 2023-05-04 09:03 | Outpatient (BNV) | payer SELFPAY | PROVIDERS: PCP Internal Medicine; Visit Provider Physician Assistant Surgical | DX: Z01.818 Encounter for other preprocedural examination (principal) | CPT/HCPCS: 74246 ==